=== PATIENT | male | born 1985 | race Caucasian/White ===

== ENCOUNTER 2021-06-20 08:10 | Emergency (ER) | payer OTHER ==
[~2021-06-20] VITALS: Ht 198.1 cm; Wt 78.4 kg
[2021-06-20] MEDS ORDERED: DIPH,PERTUSS(ACELL),TET VAC/PF 0.5 ML IM-VACC ONE ×2 (08:30→08:46)
[2021-06-20] MEDS ORDERED: LIDOCAINE-MPF 1%, 5ML INFIL ONE (08:30)
[2021-06-20] MEDS ORDERED: LIDOCAINE-MPF 1%, 5ML ONE (08:33)
--- NOTE | 2021-06-20 08:37 | NUR ---
First noted abcess on Friday. "Tried squeezing it and that's when it started swelling." Denies fevers/ chills.
--- NOTE | 2021-06-20 08:55 | NUR ---
CAROLYN Mark at bedside for I&D.
[2021-06-20 09:16] VITALS: BP 131/73
== END 2021-06-20 09:19 | disposition home or self-care (01) ==
LOC: ED 09:15
DX: L02.414 Cutaneous abscess of left upper limb (principal)
CPT/HCPCS: 10060; 90471; 90715